=== PATIENT | female | born 1980 | race Caucasian/White ===

== ENCOUNTER 2017-05-27 10:27 | Emergency (ER) | payer OTHER ==
[2017-05-27 11:22] VITALS: BP 122/78; PULSE 123; RESP 20; O2SAT 97
[2017-05-27] MEDS ORDERED: Naproxen 500 MG TAB PO STA (11:22)
[2017-05-27] MEDS ORDERED: Naproxen 500 MG TAB PO ONE (11:33)
--- NOTE | 2017-05-27 12:21 | ED PDOC ---
HPI: Fever Fever Onset Was: 05/25/17 Symptoms Associated With Fever: Other (chills, headache, body ache). denies: Vomiting, Diarrhea, Cough Additional Comments: 36 y/o female presents to the ED complaining of fever onset three days with associated symptoms of chills, headache, and bodyaches. Denies cough, nausea, diarrhea or vomiting. Also has not taken flu shot. PMD: Provider TBD Past Medical History Reviewed: Historical Data, Nursing Documentation, Vital Signs Vital Signs: Last Vital Signs Temp 102.2 F H 05/27/17 13:00 Pulse 123 H 05/27/17 11:15 Resp 20 05/27/17 11:15 BP 122/78 05/27/17 11:15 Pulse Ox 97 05/27/17 12:26 - Medical History PMH: No Chronic Diseases - Surgical History Surgical History: - Family History Family History: States: Unknown Family Hx - Social History Alcohol: None Drugs: Denies - Immunization History Hx Tetanus Toxoid Vaccination: No Hx Influenza Vaccination: No Hx Pneumococcal Vaccination: No - Home Medications Home Medications: Ambulatory Orders Medication Instructions Recorded Ibuprofen 12/07/12 Ibuprofen [Motrin] 600 mg PO Q6 #20 tab 12/07/12 Cimetidine 300 mg PO DAILY #5 tab 11/01/14 DiphenhydrAMINE [Benadryl] 25 mg PO Q8H PRN 5 Days cap 11/01/14 Prednisone 20 mg PO BID #10 tab 11/01/14 Acetaminophen [Tylenol 325mg tab] 650 mg PO Q6H PRN #50 tab 05/27/17 Naproxen [Naprosyn] 500 mg PO BID PRN #20 tablet 05/27/17 - Allergies Allergies/Adverse Reactions: Allergies Allergy/AdvReac Type Severity Reaction Status Date / Time Iodinated Contrast- Oral and Allergy Unknown RASH Verified 05/27/17 11:19 IV Dye Review of Systems ROS Statement: Except As Marked, All Systems Reviewed And Found Negative Constitutional: Positive for: Fever, Chills, Other (bodyaches) Respiratory: Negative for: Cough Gastrointestinal: Negative for: Nausea, Vomiting, Diarrhea Neurological: Positive for: Headache Physical Exam - Reviewed Vital Signs Reviewed: Yes - Physical Exam Appears: Positive for: Non-toxic, No Acute Distress. Negative for: Well ( appears ill) Head Exam: Positive for: ATRAUMATIC, NORMAL INSPECTION, NORMOCEPHALIC Skin: Positive for: Normal Color, Warm, Dry Eye Exam: Positive for: EOMI, Normal appearance, PERRL ENT: Positive for: Normal ENT Inspection Neck: Positive for: Normal, Painless ROM, Supple. Negative for: Decreased ROM Cardiovascular/Chest: Positive for: Regular Rate, Rhythm. Negative for: Murmur , Bradycardia Respiratory: Positive for: Normal Breath Sounds. Negative for: Decreased Breath Sounds, Accessory Muscle Use, Respiratory Distress Gastrointestinal/Abdominal: Positive for: Normal Exam, Bowel Sounds, Soft. Negative for: Tenderness, Guarding, Rebound Back: Positive for: Normal Inspection. Negative for: L CVA Tenderness, R CVA Tenderness Extremity: Positive for: Normal ROM. Negative for: Tenderness, Pedal Edema, Deformity Neurologic/Psych: Positive for: Alert, Oriented (x3) - ECG O2 Sat by Pulse Oximetry: 97 (RA) Pulse Ox Interpretation: Normal Medical Decision Making Medical Decision Making: Time:11:23 Initial Impression: Flu-like Illness Initial Plan: -- test --Urine Dipstick --Naproxen 500mg --Influenza A B --Reevaluation Documented by Mariia Vaughn acting as a scribe for Anum Orr MD. All medical record entries made by the Scribe were at my direction and personally dictated by me. I have reviewed the chart and agree that the record accurately reflects my personal performance of the history, physical exam, medical decision making, and the department course for this patient. I have also personally directed, reviewed, and agree with the discharge instructions and disposition. Disposition - Clinical Impression Clinical Impression: Influenza-like symptoms - Patient ED Disposition Is Patient to be Admitted: No Doctor Will See Patient In The: Office Counseled Patient/Family Regarding: Diagnosis, Need For Followup, Rx Given - Disposition Referrals: [facility] [Outside] [facility] [Outside] Disposition: Routine/Home Disposition Time: 13:29 Condition: STABLE Prescriptions: Acetaminophen [Tylenol 325mg tab] 650 mg PO Q6H PRN #50 tab PRN Reason: Pain, Mild (1-3) Naproxen [Naprosyn] 500 mg PO BID PRN #20 tablet PRN Reason: Pain, Moderate (4-7) Instructions: Viral Syndrome (DC) Forms: [facility] (Swedish) Print Language: UZBEK - POA Present On Arrival: None
[2017-05-27 14:16] VITALS: TEMP 99.9
== END 2017-05-27 14:21 | disposition home or self-care (01) ==
LOC: H.ER 10:27
DX: J11.1 Influenza due to unidentified influenza virus with other respiratory manifestations (principal)